=== PATIENT | female | born 1940 | race Caucasian/White ===

== ENCOUNTER → 2023-12-23 10:06 | Outpatient (REF) | payer MEDICARE, OTHER, SELFPAY ==
[2023-12-23 12:47] LABS: Urine Albumin Negative (Neg - Trace); Urine Bilirubin Negative (Negative); Urine Character Clear (Clear); Urine Color Yellow; Urine Glucose Negative (Negative); Urine Ketone Negative (Negative); Urine Leukocyte 1+ (Negative); Urine Nitrite Negative (Negative); Urine Occult Blood Negative (Negative); Urine Specific Gravity 1.015 (<1.030); Urine Urobilinogen Negative (Neg - 1+)
[2023-12-23 12:56] LABS: % Basophils 1.3 % (0-2); % Eosinophils 3.1 % (0-6); % Immature Granulocytes 0.3 % (0-0.5); % Lymphocytes 26.2 % (20.5-51.1); % Monocytes 5.4 % (1.7-9.3); % Neutrophils 63.7 % (42.2-75.2); Absolute Basophils 0.1 10^3/uL (0-0.2); Absolute Eosinophils 0.2 10^3/uL (0-0.7); Absolute Lymphocytes 1.8 10^3/uL (1.2-3.4); Absolute Monocytes 0.4 10^3/uL (0.1-0.6); Absolute Neutrophils 4.4 10^3/uL (1.4-6.5); Hematocrit 35.5 % (37.0-47.0); Mean Corp Hgb Conc. 33.8 g/dL (33.0-37.0); Mean Corpuscular Hgb 30.2 pg (27.0-31.0); Mean Corpuscular Volume 89.4 fL (81.0-99.0); Mean Platelet Volume 9.9 fL (7.4-10.4); Nucleated Red Blood Cells % 0 %; Platelet Count 230 10^3/uL (130-400); Red Blood Cell Count 3.97 10^6/uL (4.20-5.40); Red Cell Dist. Width 12.6 % (11.5-14.5); Reticulocyte Count 2.1 % (0.4-2.8); White Blood Cell Count 6.9 10^3/uL (4.8-10.8)
[2023-12-23 13:13] LABS: Urine Bacteria Few (Negative); Urine Red Blood Cell 0-2 /HPF (0-2)
[2023-12-23 13:36] LABS: ALT (SGPT) 17 U/L (0-35); AST (SGOT) 24 U/L (14-36); Albumin 4.1 g/dl (3.5-5.0); Alkaline Phosphatase 115 U/L (38-126); Amylase 101 U/L (30-110); Blood Urea Nitrogen 14 mg/dl (7-17); Calcium 9.3 mg/dl (8.4-10.2); Carbon Dioxide 26 mmol/L (22-30); Chloride 106 mmol/L (98-107); Creatine Phosphokinase 82 U/L (30-135); GGTP 45 U/L (12-43); Glucose 102 mg/dl (70-99); HDL Cholesterol 79 mg/dl; Iron 120 ug/dl (37-170); LDL Cholesterol, Calculated 68 mg/dl; Lipase 87 U/L (23-300); Magnesium 2.1 mg/dl (1.6-2.3); Potassium 4.1 mmol/L (3.5-5.1); Sodium 139 mmol/L (135-145); Total Cholesterol 163 mg/dl (50-199); Total Protein 7.2 g/dl (6.3-8.2); Triglyceride 82 mg/dl (10-149); Uric Acid 4.9 mg/dl (2.5-6.2); Very Low Density Lipoprotein 16 mg/dl (0-30); eGFR > 60.00
[2023-12-23 13:40] LABS: C-Reactive Protein < 5.00 mg/L (0.0-10.00)
[2023-12-23 13:46] LABS: Percent Saturation 39 % (20-50); Total Iron Binding Capacity 301 ug/dl (265-497)
[2023-12-23 13:57] LABS: Free T4 1.38 ng/dl (0.78-2.19); Vitamin D, 25-OH*** 31.5 ng/mL (30-80)
[2023-12-23 14:04] LABS: Microalbumin, Random Urine < 0.6 mg/dl (0.6-1.7)
[2023-12-23 14:10] LABS: TSH 0.73 uIU/ml (0.47-4.68)
[2023-12-23 14:14] LABS: Ferritin 82.4 ng/ml (11.1-264.0)
[2023-12-23 14:24] LABS: Glycohemoglobin (HgbA1c) 6.3 % (4.0-5.6)
[2023-12-23 14:42] LABS: Erythrocyte Sed Rate 28 mm/hour (0-20)
[2023-12-23 14:46] LABS: Folate > 20.0 ng/ml (2.76-20); Vitamin B12 504 pg/ml (239-931)
== END ==
LOC: HWLAB 10:06
PROVIDERS: ATTENDING PHYSICIAN Family Medicine
DX: E11.9 Type 2 diabetes mellitus without complications (principal); E78.5 Hyperlipidemia, unspecified; R94.5 Abnormal results of liver function studies; R74.8 Abnormal levels of other serum enzymes; E03.9 Hypothyroidism, unspecified; M10.9 Gout, unspecified; E60 Dietary zinc deficiency; E55.9 Vitamin D deficiency, unspecified; M12.9 Arthropathy, unspecified; D64.9 Anemia, unspecified; E53.8 Deficiency of other specified B group vitamins; E61.1 Iron deficiency; E83.42 Hypomagnesemia; N39.0 Urinary tract infection, site not specified
CPT/HCPCS: 36415; 80053; 80061; 81003; 81015; 82043; 82150; 82306; 82550; 82570; 82607; 82728; 82746; 82977; 83036; 83540; 83550; 83690; 83735; 84439; 84443; 84550; 84630; 85025; 85045; 85652; 86140; 86430; 87086

== ENCOUNTER → 2024-01-23 12:46 | Outpatient (REF) | payer MEDICARE, OTHER, SELFPAY | LOC: HWRCS 12:46 | PROVIDERS: ATTENDING PHYSICIAN Family Medicine | DX: I50.20 Unspecified systolic (congestive) heart failure (principal) | CPT/HCPCS: 93306 ==

== ENCOUNTER → 2024-04-05 09:17 | Outpatient (REF) | payer MEDICARE, OTHER, SELFPAY ==
[2024-04-05 12:51] LABS: ALT (SGPT) 16 U/L (0-35); AST (SGOT) 24 U/L (14-36); Albumin 4.2 g/dl (3.5-5.0); Alkaline Phosphatase 113 U/L (38-126); Blood Urea Nitrogen 13 mg/dl (7-17); Calcium 9.5 mg/dl (8.4-10.2); Carbon Dioxide 28 mmol/L (22-30); Chloride 104 mmol/L (98-107); Glucose 112 mg/dl (70-99); HDL Cholesterol 62 mg/dl; LDL Cholesterol, Calculated 76 mg/dl; Potassium 4.3 mmol/L (3.5-5.1); Sodium 144 mmol/L (135-145); Total Bilirubin 0.8 mg/dl (0.2-1.3); Total Cholesterol 163 mg/dl (50-199); Total Protein 7.1 g/dl (6.3-8.2); Triglyceride 129 mg/dl (10-149); Very Low Density Lipoprotein 25 mg/dl (0-30); eGFR > 60.00
== END ==
LOC: HWLAB 09:17
PROVIDERS: ATTENDING PHYSICIAN Internal Medicine Cardiovascular Disease; FAMILY PHYSICIAN Family Medicine
DX: E78.5 Hyperlipidemia, unspecified (principal)
CPT/HCPCS: 36415; 80053; 80061

== ENCOUNTER → 2024-09-21 09:42 | Outpatient (REF) | payer MEDICARE, OTHER, SELFPAY ==
[2024-09-21 11:57] LABS: Urine Albumin 1+ (Neg - Trace); Urine Bilirubin Negative (Negative); Urine Character Clear (Clear); Urine Color Yellow; Urine Glucose Negative (Negative); Urine Ketone Negative (Negative); Urine Leukocyte 3+ (Negative); Urine Nitrite Negative (Negative); Urine Occult Blood 1+ (Negative); Urine Urobilinogen Negative (Neg - 1+)
[2024-09-21 12:02] LABS: % Basophils 1.1 % (0-2); % Eosinophils 2.4 % (0-6); % Immature Granulocytes 0.3 % (0-0.5); % Lymphocytes 24.4 % (20.5-51.1); % Monocytes 4.9 % (1.7-9.3); % Neutrophils 66.9 % (42.2-75.2); Absolute Basophils 0.1 10^3/uL (0-0.2); Absolute Eosinophils 0.2 10^3/uL (0-0.7); Absolute Lymphocytes 1.5 10^3/uL (1.2-3.4); Absolute Monocytes 0.3 10^3/uL (0.1-0.6); Absolute Neutrophils 4.1 10^3/uL (1.4-6.5); Hematocrit 38.2 % (37.0-47.0); Hemoglobin 12.5 g/dL (12.0-16.0); Mean Corp Hgb Conc. 32.7 g/dL (33.0-37.0); Mean Corpuscular Hgb 30.3 pg (27.0-31.0); Mean Corpuscular Volume 92.7 fL (81.0-99.0); Mean Platelet Volume 9.8 fL (7.4-10.4); Nucleated Red Blood Cells % 0 %; Platelet Count 253 10^3/uL (130-400); Red Blood Cell Count 4.12 10^6/uL (4.20-5.40); Red Cell Dist. Width 12.6 % (11.5-14.5); Reticulocyte Count 1.8 % (0.4-2.8); White Blood Cell Count 6.2 10^3/uL (4.8-10.8)
[2024-09-21 12:17] LABS: ALT (SGPT) 20 U/L (0-35); AST (SGOT) 22 U/L (14-36); Albumin 4.1 g/dl (3.5-5.0); Alkaline Phosphatase 126 U/L (38-126); Amylase 110 U/L (30-110); Blood Urea Nitrogen 9 mg/dl (7-17); Calcium 9.4 mg/dl (8.4-10.2); Carbon Dioxide 26 mmol/L (22-30); Chloride 105 mmol/L (98-107); Creatine Phosphokinase 59 U/L (30-135); GGTP 53 U/L (12-43); Glucose 106 mg/dl (70-99); HDL Cholesterol 94 mg/dl; Iron 159 ug/dl (37-170); LDL Cholesterol, Calculated 57 mg/dl; Lipase 122 U/L (23-300); Magnesium 2.1 mg/dl (1.6-2.3); Potassium 4.1 mmol/L (3.5-5.1); Sodium 140 mmol/L (135-145); Total Bilirubin 1.2 mg/dl (0.2-1.3); Total Cholesterol 170 mg/dl (50-199); Triglyceride 98 mg/dl (10-149); Uric Acid 4.4 mg/dl (2.5-6.2); Very Low Density Lipoprotein 19 mg/dl (0-30); eGFR > 60.00
[2024-09-21 12:26] LABS: Percent Saturation 52 % (20-50); Total Iron Binding Capacity 301 ug/dl (265-497)
[2024-09-21 12:40] LABS: Microalbumin, Random Urine 1.2 mg/dl (0.6-1.7); Microalbumin/creatinine Ratio 8.1 mg/g
[2024-09-21 12:46] LABS: Free T4 1.32 ng/dl (0.78-2.19); Vitamin D, 25-OH*** 27.9 ng/mL (30-80)
[2024-09-21 13:00] LABS: TSH 1.04 uIU/ml (0.47-4.68)
[2024-09-21 13:04] LABS: Ferritin 82.1 ng/ml (11.1-264.0)
[2024-09-21 13:37] LABS: Folate 13.9 ng/ml (2.76-20); Vitamin B12 491 pg/ml (239-931)
[2024-09-21 14:05] LABS: Erythrocyte Sed Rate 25 mm/hour (0-20)
[2024-09-21 14:16] LABS: Urine Bacteria Few (Negative); Urine Red Blood Cell 0-2 /HPF (0-2); Urine Squamous Cell >30 /LPF (Few)
[2024-09-23 01:37] LABS: Zinc 81.9 ug/dL (60.0-120.0)
== END ==
LOC: HWLAB 09:42
PROVIDERS: ATTENDING PHYSICIAN Family Medicine
DX: E11.9 Type 2 diabetes mellitus without complications (principal); E78.5 Hyperlipidemia, unspecified; R94.5 Abnormal results of liver function studies; R74.8 Abnormal levels of other serum enzymes; E03.9 Hypothyroidism, unspecified; M10.9 Gout, unspecified; E55.9 Vitamin D deficiency, unspecified; M12.9 Arthropathy, unspecified; D64.9 Anemia, unspecified; E53.8 Deficiency of other specified B group vitamins; E61.1 Iron deficiency; E83.42 Hypomagnesemia; N39.0 Urinary tract infection, site not specified
CPT/HCPCS: 36415; 80053; 80061; 81003; 81015; 82043; 82150; 82306; 82550; 82570; 82607; 82728; 82746; 82977; 83036; 83540; 83550; 83690; 83735; 84439; 84443; 84550; 84630; 85025; 85045; 85652; 86140; 86430; 87086

== ENCOUNTER → 2024-10-18 09:34 | Outpatient (REF) | payer MEDICARE, OTHER, SELFPAY ==
[2024-10-18 13:40] LABS: ALT (SGPT) 34 U/L (0-35); AST (SGOT) 24 U/L (14-36); Albumin 4.4 g/dl (3.5-5.0); Alkaline Phosphatase 137 U/L (38-126); Blood Urea Nitrogen 12 mg/dl (7-17); Calcium 9.6 mg/dl (8.4-10.2); Carbon Dioxide 27 mmol/L (22-30); Chloride 106 mmol/L (98-107); Glucose 110 mg/dl (70-99); HDL Cholesterol 83 mg/dl; LDL Cholesterol, Calculated 62 mg/dl; Potassium 4.2 mmol/L (3.5-5.1); Sodium 142 mmol/L (135-145); Total Bilirubin 1.1 mg/dl (0.2-1.3); Total Cholesterol 163 mg/dl (50-199); Total Protein 7.4 g/dl (6.3-8.2); Triglyceride 94 mg/dl (10-149); Very Low Density Lipoprotein 18 mg/dl (0-30); eGFR > 60.00
== END ==
LOC: HWLAB 09:34
PROVIDERS: ATTENDING PHYSICIAN Internal Medicine Cardiovascular Disease; FAMILY PHYSICIAN Family Medicine
DX: E78.5 Hyperlipidemia, unspecified (principal)
CPT/HCPCS: 36415; 80053; 80061

== ENCOUNTER → 2025-02-05 07:39 | Outpatient (REF) | payer MEDICARE, OTHER, SELFPAY | LOC: HWLAB 07:39 | PROVIDERS: ATTENDING PHYSICIAN Physician Assistant Medical; FAMILY PHYSICIAN Family Medicine | DX: L40.0 Psoriasis vulgaris (principal) | CPT/HCPCS: 36415; 86480 ==

== ENCOUNTER → 2025-03-13 11:01 | Outpatient (REF) | payer MEDICARE, OTHER, SELFPAY | LOC: RAD 11:01 | PROVIDERS: ATTENDING PHYSICIAN Internal Medicine Critical Care Medicine; FAMILY PHYSICIAN Family Medicine | DX: R91.1 Solitary pulmonary nodule (principal) | CPT/HCPCS: 71250 ==

== ENCOUNTER → 2025-04-24 10:05 | Outpatient (REF) | payer MEDICARE, OTHER, SELFPAY ==
[2025-04-24 14:22] LABS: HDL Cholesterol 76 mg/dl; LDL Cholesterol, Calculated 54 mg/dl; Very Low Density Lipoprotein 17 mg/dl (0-30)
== END ==
LOC: HWLAB 10:05
PROVIDERS: ATTENDING PHYSICIAN Internal Medicine Cardiovascular Disease; FAMILY PHYSICIAN Family Medicine
DX: E78.5 Hyperlipidemia, unspecified (principal)
CPT/HCPCS: 36415; 80061